=== PATIENT | female | born 1945 | race Caucasian/White ===

== ENCOUNTER 2017-10-12 16:31 | Emergency (ER) | payer OTHER ==
[~2017-10-12] VITALS: Ht 157.5 cm; Wt 45.4 kg
--- NOTE | 2017-10-12 16:35 | NUR ---
[id number] FROM HOME: BACK PAIN X 2 DAYS AFTER LIFTING HER CAT UP YESTERDAY, NAD NOTED, VSS, RESP EVEN AND UNLABORED, WAITING FOR MD AVENDAÑO.
[2017-10-12] MEDS ORDERED: ACETAMINOPHEN ES 500 MG TABLET PO ONE (17:00)
[2017-10-12] MEDS ORDERED: DEXAMETHASONE SOD PHOSPHATE 10 MG/ML VIAL IV ONE (17:00)
[2017-10-12] MEDS ORDERED: IV NS 0.9% 500 ML BAG IV ONE (17:00)
[2017-10-12] MEDS ORDERED: IBUPROFEN 600 MG TABLET PO ONE ×2 (17:00→17:09)
[2017-10-12 17:05] LABS: BASOPHILS # (AUTO) 0.5 /CMM (0.0-0.2); BASOPHILS % (AUTO) 3.5 % (0.0-2.0); EOSINOPHILS # (AUTO) 0.1 /CMM (0.0-0.7); EOSINOPHILS % (AUTO) 0.7 % (0.0-6.0); HEMATOCRIT 40 % (33-45); HEMOGLOBIN 13.6 g/dL (11.5-14.8); LYMPHOCYTES # (AUTO) 0.9 /CMM (0.8-4.8); LYMPHOCYTES % (AUTO) 6.8 % (20.0-44.0); MEAN CORPUSCULAR HEMOGLOBIN 29 PG (26.0-33.0); MEAN CORPUSCULAR HGB CONC 34 g/dl (31.0-36.0); MEAN CORPUSCULAR VOLUME 85 fL (82-100); MONOCYTES % (AUTO) 7.2 % (2.0-12.0); NEUTROPHILS # (AUTO) 10.9 /CMM (1.8-8.9); NEUTROPHILS % (AUTO) 81.8 % (43.0-81.0); PLATELET COUNT (AUTO) 195 /CMM (150-450); RDW COEFFICIENT OF VARIATION 13.1 (11.5-15.0); RED BLOOD CELL COUNT(AUTO) 4.71 MIL/uL (4.0-5.2); WHITE BLOOD COUNT (AUTO) 13.4 K/uL (4.3-11.0)
[2017-10-12] MEDS ORDERED: ACETAMINOPHEN ES 500 MG TABLET ONE (17:08)
[2017-10-12] MEDS ORDERED: DEXAMETHASONE SOD PHOSPHATE 10 MG/ML VIAL ONE (17:08)
[2017-10-12 17:16] LABS: CALCIUM, SERUM 8.8 mg/dL (8.5-10.1); CREATININE 0.6 mg/dL (0.6-1.3); POTASSIUM 3.9 mmol/L (3.5-5.1)
[2017-10-12 18:07] LABS: BAND % (MANUAL) 2 % (0.0-5.0); LYMPHOCYTES % (MANUAL) 10 % (16-48); MONOCYTES % (MANUAL) 3 % (0-11.0); NEUTROPHILS % (MANUAL) 85 (42-76)
[2017-10-12 19:36] VITALS: BP 100/67
--- NOTE | 2017-10-12 19:36 | NUR ---
Patient discharged to home in stable condition. Written and verbal after care instructions given. Patient verbalizes understanding of instruction. PT ambulatory with a steady gait VITAL SIGNS WITHIN NORMAL LIMITS.
== END 2017-10-12 19:37 | disposition home or self-care (01) ==
LOC: ER 16:33
DX: S39.012A Strain of muscle, fascia and tendon of lower back, initial encounter (principal); J20.9 Acute bronchitis, unspecified; Z88.0 Allergy status to penicillin; X58.XXXA Exposure to other specified factors, initial encounter; Y93.89 Activity, other specified; Y92.89 Other specified places as the place of occurrence of the external cause; Y99.8 Other external cause status
CPT/HCPCS: 36415; 71045; 80048; 85025; 96374; 99285; A4606; J1100; J7040; Z7610

== ENCOUNTER → 2025-07-04 | Emergency (ER) | payer OTHER ==
[~2025-07-04] VITALS: Ht 157.5 cm; Wt 59.0 kg
[~2025-07-04] MED LIST: CT SWABBABLE VALVE TRANS SET 1 EA INFUS.SET MC ONE; IOHEXOL-300 100 ML VIAL IV ONE; IV NS 0.9% 250 ML IV ONE; KETOROLAC TROMETHAMINE 15 MG/ML VIAL ONE
[2025-07-04] MEDS: IV NS 0.9% 1,000 ML BAG IV ONE ×2 (19:00)
[2025-07-04 19:24] LABS: PLATELET COUNT (AUTO) 203 K/uL (150-450); RED BLOOD CELL COUNT(AUTO) 5.73 MIL/uL (4.0-5.2); RED CELL DISTRIBUTION WIDTH 16.2 % (11.5-15.0); WHITE BLOOD COUNT (AUTO) 12.0 K/uL (4.3-11.0)
[2025-07-04] MEDS: KETOROLAC TROMETHAMINE 15 MG/ML VIAL IV ONE (19:26)
[2025-07-04 19:41] LABS: LACTIC ACID 1.5 mmol/L (0.4-2.0)
[2025-07-04 19:48] LABS: CALCIUM, SERUM 9.8 mg/dL (8.5-10.1); CREATININE 1.5 mg/dL (0.6-1.3); SODIUM SERUM 140 mmol/L (136-145); UREA NITROGEN, BLOOD 26 mg/dL (7-18)
[2025-07-04 19:54] LABS: ASPARTATE AMINOTRANSFERASE 27 U/L (15-37); TOTAL PROTEIN, SERUM 8.0 g/dL (6.4-8.2)
[2025-07-04] MEDS: LOPERAMIDE HCL (2 MG CAP) 2 MG CAPSULE PO ONE (20:21)
[2025-07-04] MEDS: LEVOFLOXACIN 750 MG /D5W 150ML PIGGYBACK IV ONE (21:23)
[2025-07-04 21:49] LABS: APPEARANCE,URINE SLIGHTLY CLOUDY (CLEAR); BLOOD, URINE 2+ Ery/uL (NEGATIVE); LEUKOCYTE ESTERASE ,URINE NEGATIVE (NEGATIVE); NITRITE, URINE NEGATIVE (NEGATIVE); UGLUCOSE NEGATIVE (NEGATIVE)
[2025-07-04 21:54] LABS: SQUAMOUS EPITHELIAL CELL,UR Many /HPF (None Seen)
[2025-07-04 21:56] LABS: ADD URINE CULTURE YES
[2025-07-04 21:57] LABS: COARSE GRANULAR CASTS,URINE Few /LPF (None Seen)
[2025-07-04 23:00] VITALS: BP 121/99; O2SAT 98
== END | disposition admitted as inpatient to this hospital (09) ==
LOC: ER 18:10
DX: A41.9 Sepsis, unspecified organism (principal); R09.02 Hypoxemia; I45.4 Nonspecific intraventricular block; I49.3 Ventricular premature depolarization; J18.9 Pneumonia, unspecified organism; R65.21 Severe sepsis with septic shock; Z88.0 Allergy status to penicillin; Z20.822 Contact with and (suspected) exposure to COVID-19
CPT/HCPCS: 99291; 74177; 96365; 96361; 71045; 96375; 93005; 87804 ×2; 85025; 80048; 87040 ×2; 87086; 83605; 83690; 80076; 81001; 36415; 84484 ×2; J1885; J7050; J1956; Q9967